=== PATIENT | female | born 1945 | race Caucasian/White ===

== ENCOUNTER 2019-05-22 08:15 | Outpatient (CLI) | payer MEDICARE, OTHER, SELFPAY ==
--- NOTE | 2019-05-22 08:15 | XR_ITS ---
WS: [id number] KUB, 05/22/2019 Clinical Data: Follow-up renal calculi. Comparison: KUB, 05/21/2017. Findings: No abnormal intraabdominal masses or calcifications are seen. There is no dilatated small bowel or ev idence of obstruction. No definite renal or ureteral calculi are seen. There is a large amount of fecal material throughout the colon. There is a levoscoliosis of the lower thoracic and upper lumbar spine. XR/XR KUB 22418 Impression: Negative KUB.
== END 2019-05-22 08:16 | disposition home or self-care (01) ==
PROVIDERS: Family Provider Family Medicine; PCP Nurse Practitioner; Visit Provider Urology
DX: N20.0 Calculus of kidney (principal)
CPT/HCPCS: 74018; 81001

== ENCOUNTER 2022-12-14 02:03 | Emergency (ER) | payer MEDICARE, OTHER, SELFPAY ==
[2022-12-14 02:05] VITALS: BP 191/80; PULSE 67; RESP 18; TEMP 36.6; O2SAT 98; BMI 23.0
--- NOTE | 2022-12-14 02:09 | CTR_ITS ---
PROCEDURE INFORMATION: Exam: CT Head Without Contrast Exam date and time: 12/14/2022 2:16 AM Age: 77 years old Clinical indication: Stroke-like symptoms; Speech disturbance; Additional info: Symptoms of acute stroke TECHNIQUE: Imaging protocol: Computed tomography of the head without contrast. Radiation optimization: All CT scans at this facility use at least one of these dose optimization techniques: automated exposure control; mA and/or kV adjustment per patient size (includes targeted exams where dose is matched to clinical indication); or iterative reconstruction. Other technique: STROKE PROTOCOL was implemented. REPORTING DATA: Count of CT and Cardiac NM exams in prior 12 months: This patient has received 0 known CTs and 0 known cardiac nuclear medicine studies in the 12 months prior to the current study. COMPARISON: CT head wo con* [id number] 12/31/2017 2:55 PM RADIATION DOSE METRICS: Total DLP (mGy-cm): 1103.98 FINDINGS: Brain: Normal. No hemorrhage. Unremarkable white matter. No mass effect. There are age-related microvascular ischemic changes in bilateral periventricular white matter. Cerebral ventricles: No ventriculomegaly. Paranasal sinuses: Visualized sinuses are unremarkable. No fluid levels. Mastoid air cells: Visualized mastoid air cells are well aerated. Bones/joints: Unremarkable. No acute fracture. Soft tissues: Unremarkable. CT/CT head thrombolytic 40712 IMPRESSION: 1. No acute intracranial abnormality. 2. Age-related microvascular ischemic changes in bilateral periventricular white matter. ASSESSMENT: ASPECTS (Man Stroke Program Early CT Score) is 10.
--- NOTE | 2022-12-14 02:10 | ED_ITS ---
HPI - General Adult General: Chief complaint: Neuro Symptoms/Deficit Stated complaint: possible stroke Time Seen by Provider: 12/14/22 02:09 Source: patient and EMS Mode of arrival: EMS Limitations: no limitations History of Present Illness: Patient is a 77-year-old female who presents to the emergency room via EMS from home for altered mental status. Patient's found patient lying on the couch sleeping and woke her up where he stated that she was more confused than normal; states last known well was at 2130. EMS stated that prior to arrival patient was slurred speech with severe weakness. On arrival, EMS states patient's symptoms subsided and was only unable to state current year as this is her baseline due to past medical history of dementia. Patient denies any dizziness or confusion. No other complaints at this time Associated symptoms: Deny chest pain, dyspnea, headache(s), nausea, rash, palpitations or vomiting Review of Systems Const: Denies: fever(s) or chills Eyes: Denies: change in vision ENMT: Denies: throat pain or mouth pain Card: Denies: chest pain or palpitations Resp: Denies: dyspnea or productive cough GI: Denies: abdominal pain, nausea or vomiting : Denies: flank pain or difficulty voiding Musc: Denies: neck pain or back pain Skin/Breast: Denies: rash Neuro: Denies: headache(s) [facility] ED PFSH: Medical History (Updated 12/14/22 @ 03:33 by Kesha Alvarado MD) 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 Urolithiasis Surgical History H/O breast biopsy H/O: hysterectomy Family History Mother Dementia Social History Smoking and tobacco status: never smoked Alcohol intake: never Substance/Drug Use: never Marital status: Current occupational status: retired Physical Exam Const: COMMON NORMALS: no acute distress and alert EXAM LIMITATIONS: altered mental status ORIENTATION/CONSCIOUSNESS: Yes awake, Yes oriented to person and Yes oriented to place; not oriented to time HENMT: COMMON NORMALS: normocephalic HEAD & SCALP: normocephalic FACE & SINUS: normal facial exam Eye: COMMON NORMALS: Equal, round and reactive pupils present and EOMs intact bilaterally GENERAL EYE: appearance normal, both eyes and all related stru ctures PUPIL: Yes Equal, round and reactive pupils present Neck/C-Spine: COMMON NORMALS: full ROM, no lymphadenopathy and no JVD Lymph: LYMPHATIC: no lymphadenopathy noted Chest: CHEST: Yes Symmetrical chest wall rise Resp: COMMON NORMALS: normal respiratory effort and clear to auscultation bilaterally EFFORT & INSPECTION: Yes symmetric chest movement AUSCULTATION: clear to auscultation bilaterally Cardio: COMMON NORMALS: no JVD and S1 normal heart sound present HEART SOUNDS: S1 normal heart sound present GI: COMMON NORMALS: Normal to inspection, nondistended, normoactive bowel sounds present : COMMON NORMALS: Yes no CVA tenderness BLADDER/KIDNEY EXAM: Yes no CVA tenderness Back/Pelvis: COMMON NORMALS: no CVA tenderness Extremity: COMMON NORMALS: normal to inspection Neuro: COMMON NORMALS: CN's II-XII intact bilaterally SENSORIUM/ORIENTATION: Yes alert, Yes oriented to person, Yes oriented to place and No oriented to time SPEECH: speech normal GAIT: Yes Unable to assess gait MOTOR EXAM: 5/5 motor strength present throughout Skin: COMMON NORMALS: no rashes or lesions noted GENERAL SKIN EXAM: no rashes or lesions noted Course Vital Signs: Vital signs: Vital Signs Temperature 97.9 F 12/14/22 02:05 Pulse Rate 66 12/14/22 03:00 Respiratory Rate 19 H 12/14/22 03:00 Blood Pressure 167/91 12/14/22 03:00 Pulse Oximetry 96 12/14/22 03:00 Oxygen Delivery Me thod Room Air 12/14/22 03:00 [facility] - General Adult Medical Decision Making Patient presents here with possible TIA versus her dementia head CT here is normal she is at her baseline currently she is able walk she has no signs of a stroke here NIH is 0 she does have a UTI we will place her on Keflex she is stable for discharge she is to follow-up with PCP and return if worsening Lab Data 12/14/22 02:15 12/14/22 02:[address] 12/14/22 02:09 IMPRESSION: 1. No acute intracranial abnormality. 2. Age-related microvascular ischemic changes in bilateral periventricular white matter. ASSESSMENT: ASPECTS (Ana Stroke Program Early CT Score) is 10. Laboratory Results WBC 8.29 10^3/uL (3.29-11.43) 12/14/22 02:15 RBC 4.63 10^6/uL (3.85-5.65) 12/14/22 02:15 Hgb 14.30 g/dL (11.27-16.99) 12/14/22 02:15 Hct 43.8 % (36-47) 12/14/22 02:15 MCV 94.6 fl (85-98) 12/14/22 02:15 MCH 30.9 pg (27-33) 12/14/22 02:15 MCHC 32.6 g/dL (30-55) 12/14/22 02:15 RDW 12.3 % (12.1-15.1) 12/14/22 02:15 Plt Count 266 10^3/cmm (157-399) 12/14/22 02:15 MPV 10.8 fL (7.4-10.4) H 12/14/22 02:15 Neut % (Auto) 52.3 % 12/14/22 02:15 Lymph % (Auto) 39.2 % 12/14/22 02:15 [place] % (Auto) 6.6 % 12/14/22 02:15 Eos % (Auto) 1.1 % 12/14/22 02:15 Baso % (Auto) 0.6 % 12/14/22 02:15 Neut # (Auto) 4.33 10^3/uL (1.8-7.7) 12/14/22 02:15 Lymph # (Auto) 3.3 10^3/uL (0.8-4.8) 12/14/22 02:15 [place] # (Auto) 0.6 10^3/uL (0.2-0.9) 12/14/22 02:15 Eos # (Auto) 0.1 10^3/uL (0.0-0.8) 12/14/22 02:15 Baso # (Auto) 0.1 10^3/uL (0.0-0.1) 12/14/22 02:15 Nucleated RBC % (auto) 0 % 12/14/22 02:15 Nucleated RBCs # 0.0 /100WBC 12/14/22 02:15 PT 12.30 SECONDS (12.1-14.9) 12/14/22 02:15 INR 0.89 (0.8-1.2) 12/14/22 02:15 APTT 32.6 SECONDS (23.9-36.7) 12/14/22 02:15 Sodium 141 mmol/L (136-145) 12/14/22 02:15 Potassium 4.1 mmol/L (3.5-5.1) 12/14/22 02:15 Chloride 105 mmol/L (98-107) 12/14/22 02:15 Carbon Dioxide 27 mmol/L (22-29) 12/14/22 02:15 Anion Gap 13.1 (5-19) 12/14/22 02:15 BUN 9 mg/dL (8-23) 12/14/22 02:15 Creatinine 0.6 mg/dL (0.5-0.9) 12/14/22 02:15 GFR Calculation Not Reportable 12/14/22 02:15 Glucose 95 mg/dL (65-115) 12/14/22 02:15 POC Glucose 96 mg/dL (70-110) 12/14/22 02:33 Calculated Osmolality 290 mOsm/kg (285-295) 12/14/22 02:15 Calcium 10.5 mg/dL (8.5-10.5) 12/14/22 02:15 Total Bilirubin 0.5 mg/dL (0.15-1.2) 12/14/22 02:15 AST 13 U/L (0-32) 12/14/22 02:15 ALT 14 U/L (0-33) 12/14/22 02:15 Alkaline Phosphatase 115 U/L (35-105) H 12/14/22 02:15 Total Protein 7.0 g/dL (6.6-8.7) 12/14/22 02:15 Albumin 4.7 g/dL (3.5-5.2) 12/14/22 02:15 Globulin 2.3 g/dL (1.3-4.6) 12/14/22 02:15 Urine Color Yellow (Yellow) 12/14/22 03:14 Urine Appearance Clear (CLEAR) 12/14/22 03:14 Urine pH 6.5 (5-7) 12/14/22 03:14 Ur Specific [place] 1.010 (1.005-1.030) 12/14/22 03:14 Urine Protein Neg (Negative) 12/14/22 03:14 Urine Glucose (UA) Norm (Normal) 12/14/22 03:14 Urine Ketones Negative (Negative) 12/14/22 03:14 Urine Blood Neg (Negative) 12/14/22 03:14 Urine Nitrate Positive (Negative) H 12/14/22 03:14 Urine Bilirubin Neg (Negative) 12/14/22 03:14 Urine Urobilinogen Neg mg/dL (Negative) 12/14/22 03:14 Ur Leukocyte Esterase Trace (Negative) H 12/14/22 03:14 Urine RBC None /hpf (0-2) 12/14/22 03:14 Urine WBC 10-15 /hpf (0-5) H 12/14/22 03:14 Ur Squamous Epith Cells 0-4 /hpf (0-5) H 12/14/22 03:14 Amorphous Sediment Not Reportable 12/14/22 03:14 Urine Bacteria 4+ /hpf (NONE) H 12/14/22 03:14 Urine Opiates Screen Negative ng/mL (Negative) 12/14/22 03:14 Ur Barbiturates Screen Negative ng/mL (Negative) 12/14/22 03:14 Ur Phencyclidine Scrn Negative ng/mL (Negative) 12/14/22 03:14 Ur Amphetamines Screen Negative ng/mL (Negative) 12/14/22 03:14 U Benzodiazepines Scrn Negative ng/mL (Negative) 12/14/22 03:14 Urine Cocaine Screen Negative ng/mL (Negative) 12/14/22 03:14 U Marijuana (THC) Screen Negative ng/mL (Negative) 12/14/22 03:14 Ethyl Alcohol < 10 mg/dL (0-10) 12/14/22 02:15 All radiology interpretation(s) finalized by discharge Discharge Plan Discharge Patient Disposition: Home Clinical Impression: Acute UTI, Brain TIA Condition: Stable Prescriptions: New cephalexin 500 mg capsule 500 mg PO TID 7 Days Qty: 21 0RF No Action lisinopril 10 mg tablet 10 mg PO DAILY omeprazole 20 mg capsule,delayed release(DR/EC) 20 mg PO DAILY levothyroxine 25 mcg capsule 25 mcg PO DAILY fluoxetine 20 mg capsule 20 mg PO DAILY meloxicam 15 mg tablet 15 mg PO DAILY cephalexin 500 mg capsule 500 mg PO BID Qty: 60 1RF Discharge Orders: Discharge ED (Routine); Ordered 12/14/22 Ordered By: Kesha Alvarado Referrals: Rosana Barriga NP [Primary Care Provider] - 1-3 days Discharge Diet: Advance as tolerated Discharge Activity: Resume usual activity Patient Instructions: Transient Ischemic Attack (ED), Urinary Tract Infection i n Women (ED) Coding Level of Care Code ED Loan Consultant for Clarisse Gonzales NIH stroke score NIHSS Level Of Consciousness - 1a: 0 Level Of Consciousness Questions - 1b: Both Correct Level Of Consciousness Commands - 1c: Both Correct Best Gaze - 2: Normal Visual [place] - 3: No Visual Loss Facial Palsy - 4: Normal Motor Arm Right - 5: No Drift Motor Arm Left - 5: No Drift Motor Leg Right - 6: No Drift Motor Leg Left - 6: No Drift Limb Ataxia - 7: Absent Sensory - 8: Normal Best Language - 9: No Aphasia Dysarthia - 10: Normal Extinction And Inattention - 11: 0 Score Total Score: 0
[2022-12-14 02:19] LABS: Basophils # 0.1 10^3/uL (0.0-0.1); Basophils % 0.6 %; Eosinophils # 0.1 10^3/uL (0.0-0.8); Eosinophils % 1.1 %; Hematocrit 43.8 % (36-47); Lymphocytes # 3.3 10^3/uL (0.8-4.8); Lymphocytes % 39.2 %; Mean Corpuscular HGB Conc 32.6 g/dL (30-55); Mean Corpuscular Hemoglobin 30.9 pg (27-33); Mean Corpuscular Volume 94.6 fl (85-98); Mean Platelet Volume 10.8 fL (7.4-10.4); Monocytes # 0.6 10^3/uL (0.2-0.9); Monocytes % 6.6 %; Neutrophils # 4.33 10^3/uL (1.8-7.7); Neutrophils % 52.3 %; Nucleated Red Blood Cells % 0 %; Platelet Count 266 10^3/cmm (157-399); Red Blood Count 4.63 10^6/uL (3.85-5.65); Red Cell Distribution Width 12.3 % (12.1-15.1); White Blood Count 8.29 10^3/uL (3.29-11.43)
[2022-12-14 02:30] VITALS: BP 163/87; PULSE 64; RESP 15; O2SAT 98
[2022-12-14 02:30] LABS: INR 0.89 (0.8-1.2)
[2022-12-14 02:31] LABS: Partial Thromboplastin Time 32.6 SECONDS (23.9-36.7)
--- NOTE | 2022-12-14 02:31 | ECG_ITS ---
[facility] Test Date: 2022-12-14 Pat Name: Ana Arana Department: Room: Gender: Female Lighting Specialist: : 1945 Requested By: Kesha Alvarado Order Number: [id number] Pierre MD: Addison Fraire M.D. Measurements Intervals [place] Rate: 62 P: 38 AK: 174 QRS: 5 QRSD: 80 T: 23 QT: 372 QTc: 380 Interpretive Statements SINUS RHYTHM MINIMAL VOLTAGE CRITERIA FOR LVH, CONSIDER NORMAL VARIANT [MEETS CRITERIA IN ONE OF: R(aVL), S(V1), R(V5), R(V5/V6)+S(V1)] Compared to ECG 01/17/2015 19:16:39 ST (T wave) deviation no longer present Electronically Signed On 12-14-2022 15:55:13 CDT by Addison Fraire M.D. [id number]
[2022-12-14 02:38] LABS: Glucose Point of Care 96 mg/dL (70-110)
[2022-12-14 02:51] LABS: Alanine Aminotransferase 14 U/L (0-33); Albumin Level 4.7 g/dL (3.5-5.2); Alkaline Phosphatase 115 U/L (35-105); Anion Gap 13.1 (5-19); Aspartate Amino Transferase 13 U/L (0-32); Blood Urea Nitrogen 9 mg/dL (8-23); Calcium 10.5 mg/dL (8.5-10.5); Carbon Dioxide 27 mmol/L (22-29); Chloride 105 mmol/L (98-107); Creatinine Clr Calc Pharmacy 49.5337; Globulin 2.3 g/dL (1.3-4.6); Glucose 95 mg/dL (65-115); Osmolality Calculated 290 mOsm/kg (285-295); Potassium 4.1 mmol/L (3.5-5.1); Sodium 141 mmol/L (136-145); Total Bilirubin 0.5 mg/dL (0.15-1.2)
[2022-12-14 02:57] LABS: Alcohol Level < 10 mg/dL (0-10)
[2022-12-14 03:00] VITALS: BP 167/91; PULSE 66; RESP 19; O2SAT 96
[2022-12-14 03:26] LABS: Add Urine Microscopic? YES; Bilirubin Urine Neg (Negative); Blood Urine Neg (Negative); Glucose Urine UA Norm (Normal); Ketones Urine Negative (Negative); Leukocyte Esterase Urine Trace (Negative); Nitrate Urine Positive (Negative); Protein Urine Neg (Negative); Urine Appearance Clear (CLEAR); Urine Color Yellow (Yellow); Urobilinogen Urine Neg (Negative); pH Urine 6.5 (5-7)
[2022-12-14 03:27] LABS: Add Urine Culture? Yes; Amphetamines Screen Urine Negative (Negative); Bacteria Urine 4+ /hpf; Barbiturates Screen Urine Negative (Negative); Benzodiazepines Screen Urine Negative (Negative); Cocaine Screen Urine Negative (Negative); Opiate Screen Urine Negative (Negative); PCP Screen Urine Negative (Negative); Squamous Epithelial Cell Urine 0-4 /hpf (0-5); THC Screen Urine Negative (Negative)
[2022-12-14 03:30] VITALS: BP 175/94; PULSE 62; RESP 17; O2SAT 98
[2022-12-14 04:00] VITALS: BP 182/87; PULSE 65; RESP 15; O2SAT 96
[2022-12-14] MEDS: cephALEXin 500 mg Capsule PO (04:01)
[2022-12-14 04:13] VITALS: BP 182/87; PULSE 65; RESP 15; O2SAT 96
== END 2022-12-14 04:15 | disposition home or self-care (01) ==
PROVIDERS: Emergency Provider Emergency Medicine; PCP Nurse Practitioner Family
DX: G45.9 Transient cerebral ischemic attack, unspecified (principal); N39.0 Urinary tract infection, site not specified; Z87.440 Personal history of urinary (tract) infections
CPT/HCPCS: 36416; 70450; 80053; 80306; 80307; 81001; 82962; 85025; 85610; 85730; 87077; 87086; 87186; 93005; 99285

== ENCOUNTER 2023-01-15 13:45 | Outpatient (CLI) | payer MEDICARE, OTHER, SELFPAY ==
[2023-01-15 14:21] LABS: Add Urine Microscopic? NO; Charge for UA Resulting for Rev
[2023-01-15 14:42] LABS: Bilirubin Urine Neg (Negative); Blood Urine Neg (Negative); Glucose Urine UA Norm (Normal); Ketones Urine Negative (Negative); Leukocyte Esterase Urine Negative (Negative); Nitrate Urine Negative (Negative); Protein Urine Neg (Negative); Urine Appearance Clear (CLEAR); Urine Color Yellow (Yellow); Urobilinogen Urine Norm (Negative); pH Urine 7 (5-7)
== END 2023-01-15 13:46 | disposition home or self-care (01) ==
LOC: LAB 13:51
PROVIDERS: PCP Nurse Practitioner Family; Visit Provider Nurse Practitioner Family
DX: R41.82 Altered mental status, unspecified (principal)
CPT/HCPCS: 81003

== ENCOUNTER 2024-05-16 14:56 | Emergency (ER) | payer MEDICARE, OTHER, SELFPAY ==
[2024-05-16 15:00] VITALS: BP 131/82; PULSE 81; RESP 17; TEMP 36.4; O2SAT 100
--- NOTE | 2024-05-16 15:41 | W.ED.AMS ---
HPI - Altered Mental Status General: Chief Complaint: Altered Mental Status Stated Complaint: possible UTI - change in mental status Time Seen by Provider: 05/16/24 15:30 History of Present Illness: 79-year-old female presents to the emergency room with increasing confusion. Patient lives at home has some cognitive deficits she has had increasing aggravation deficits from walking around they frequently had exacerbations of her behavior related to bladder infections. She has had kidney stones in the past have not noticed a fever no vomiting or diarrhea the daughter did mention she had a facial droop when they first woke up but here when I first examined her she has no focal neurologic deficits at all. She is awake alert answers questions although she has a difficult time with specific questions and tries to answers and generality. Related Data Home Medications ?Medication ?Instructions ?Recorded ?Confirmed lisinopril 10 mg tablet 10 mg PO DAILY 05/22/19 05/16/24 omeprazole 20 mg capsule,delayed 20 mg PO DAILY 05/22/19 05/16/24 release diphenhydramine 25 1 tab PO Q6H PRN Sleep 05/16/24 05/16/24 mg-acetaminophen 500 mg tablet (Tylenol PM Extra Strength) hydroxyzine HCl 25 mg tablet 25 mg PO TID 05/16/24 05/16/24 ibuprofen 200 mg tablet (Advil) 400 mg PO Q6H PRN Pain 05/16/24 05/16/24 quetiapine 100 mg tablet See Rx Instructions .Route .COMPLEX 05/16/24 05/16/24 simvastatin 80 mg tablet 80 mg PO QPM 05/16/24 05/16/24 Allergies Allergy/AdvReac Type Severity Reaction Status Date / Time No Known Allergies Allergy Verified 12/14/22 02:13 Review of Systems General: Reports: Other (Family assists with review of systems) Card: Denies: chest pain Resp: Denies: dyspnea GI: Reports: abdominal pain : Reports: flank pain (Left); Denies: dysuria, urinary frequency or urinary urgency [facility] ED PFSH: Medical History (Updated 05/16/24 @ 17:12 by Jass Leonard DO) Urolithiasis S/P extracorporeal shock wave therapy Cystitis cystica Surgical History H/O: hysterectomy H/O breast biopsy Family History Mother Dementia Social History Smoking and tobacco/nicotine status: never used tobacco/nicotine Alcohol intake: never Substance/Drug Use: never Marital status: Current occupational status: retired Physical Exam Const: GENERAL APPEARANCE: cooperative ORIENTATION/CONSCIOUSNESS: Yes awake HENMT: COMMON NORMALS: normocephalic, atraumatic and hearing grossly normal bilaterally HEAD & SCALP: normocephalic and atraumatic Resp: COMMON NORMALS: normal respiratory effort, No retractions, No use of accessory muscles and clear to auscultation bilaterally AUSCULTATION: clear to auscultation bilaterally Cardio: COMMON NORMALS: regular rate, regular rhythm and No murmurs present (Cardio) RATE: regular rate RHYTHM: regular rhythm GI: COMMON NORMALS: Soft to palpation and No hepatosplenomegaly present AUSCULTATION: Yes normoactive bowel sounds PALPATION: Yes Soft to palpation, No Tenderness to palpation present (GI), No Guarding due to palpation present (GI) and Yes No hepatosplenomegaly present Extremity: COMMON NORMALS: normal to inspection, capillary refill normal, no clubbing, cyanosis or edema, no calf tenderness and no pedal edema Skin: COMMON NORMALS: no rashes or lesions noted GENERAL SKIN EXAM: no rashes or lesions noted Course Vital Signs: Vital signs: Vital Signs Temperature 97.5 F L 05/16/24 15:00 Pulse Rate 81 05/16/24 15:00 Respiratory Rate 17 05/16/24 15:00 Blood Pressure 131/82 05/16/24 15:00 Pulse Oximetry 100 05/16/24 15:00 Oxygen Delivery Me thod Room Air 05/16/24 15:00 MDM - Altered Mental Status Medical Decision Making You are seen and seen in the emergency room for complaint of altered mental status family is reporting she is more confused. Labs UA unremarkable EKG unremarkable neuroexam normal no sign of lateralizing defects no sign of acute neurologic event. Reviewing her medication list she has hydroxyzine rather concerning dose of 25 3 times daily cautioned the family against this dose as it is likely to be extremely sedated of or possibly have a paradoxical reaction and be very agitating the patient additionally she has diphenhydramine and quetiapine on her list. Monitor closely with these medications follow-up with primary care doctor return if has further problems. Medical Records I reviewed the patient's medical records. Lab Data I reviewed the patient's lab results. 05/16/24 15:30 05/16/24 15:[address] 05/16/24 16:04 IMPRESSION: 1. No acute intracranial CT findings identified. 2. Ixsxxjlf-sv-neovjl atrophy/involutional changes of aging with components of chronic small-vessel disease. 3. 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 Laboratory Results WBC 5.27 10^3/uL (3.29-11.43) 05/16/24 15:30 RBC 4.13 10^6/uL (3.85-5.65) 05/16/24 15:30 Hgb 12.70 g/dL (11.27-16.99) 05/16/24 15:30 Hct 40.2 % (36-47) 05/16/24 15:30 MCV 97.3 fl (85-98) 05/16/24 15:30 MCH 30.8 pg (27-33) 05/16/24 15:30 MCHC 31.6 g/dL (30-55) 05/16/24 15:30 RDW 12.4 % (12.1-15.1) 05/16/24 15:30 Plt Count 236 10^3/cmm (157-399) 05/16/24 15:30 MPV 9.8 fL (7.4-10.4) 05/16/24 15:30 Neut % (Auto) 47.3 % 05/16/24 15:30 Lymph % (Auto) 44.2 % 05/16/24 15:30 [place] % (Auto) 6.6 % 05/16/24 15:30 Eos % (Auto) 1.1 % 05/16/24 15:30 Baso % (Auto) 0.6 % 05/16/24 15:30 Neut # (Auto) 2.49 10^3/uL (1.8-7.7) 05/16/24 15:30 Lymph # (Auto) 2.3 10^3/uL (0.8-4.8) 05/16/24 15:30 [place] # (Auto) 0.4 10^3/uL (0.2-0.9) 05/16/24 15:30 Eos # (Auto) 0.1 10^3/uL (0.0-0.8) 05/16/24 15:30 Baso # (Auto) 0.0 10^3/uL (0.0-0.1) 05/16/24 15:30 Nucleated RBC % (auto) 0 % 05/16/24 15:30 Nucleated RBCs # 0.0 /100WBC 05/16/24 15:30 Sodium 141 mmol/L (136-145) 05/16/24 15:30 Potassium 3.7 mmol/L (3.5-5.1) 05/16/24 15:30 Chloride 105 mmol/L (98-107) 05/16/24 15:30 Carbon Dioxide 28 mmol/L (22-29) 05/16/24 15:30 Anion Gap 11.7 (5-19) 05/16/24 15:30 BUN 8 mg/dL (8-23) 05/16/24 15:30 Creatinine 0.5 mg/dL (0.5-0.9) 05/16/24 15:30 GFR Calculation Not Reportable 05/16/24 15:30 Glucose 124 mg/dL (65-115) H 05/16/24 15:30 Calculated Osmolality 292 mOsm/kg (285-295) 05/16/24 15:30 Lactic Acid 1.5 mmol/L (0.5-2.2) 05/16/24 15:30 Calcium 9.6 mg/dL (8.5-10.5) 05/16/24 15:30 Total Bilirubin 0.3 mg/dL (0.15-1.2) 05/16/24 15:30 AST 12 U/L (0-32) 05/16/24 15:30 ALT 11 U/L (0-33) 05/16/24 15:30 Alkaline Phosphatase 95 U/L (35-105) 05/16/24 15:30 Total Protein 6.4 g/dL (6.6-8.7) L 05/16/24 15:30 Albumin 4.0 g/dL (3.5-5.2) 05/16/24 15:30 Globulin 2.4 g/dL (1.3-4.6) 05/16/24 15:30 Urine Color Yellow (Yellow) 05/16/24 15:30 Urine Appearance Clear (CLEAR) 05/16/24 15:30 Urine pH 7.0 (5-7) 05/16/24 15:30 Ur Specific [place] 1.006 (1.005-1.030) 05/16/24 15:30 Urine Protein Negative (Negative) 05/16/24 15:30 Urine Glucose (UA) Negative (Normal) 05/16/24 15:30 Urine Ketones Negative (Negative) 05/16/24 15:30 Urine Blood Negative (Negative) 05/16/24 15:30 Urine Nitrate Negative (Negative) 05/16/24 15:30 Urine Bilirubin Negative (Negative) 05/16/24 15:30 Urine Urobilinogen 0.2 mg/dL (Negative) 05/16/24 15:30 Ur Leukocyte Esterase Negative (Negative) 05/16/24 15:30 Urine RBC 0-2 /hpf (0-2) 05/16/24 15:30 Urine WBC 0-5 /hpf (0-5) 05/16/24 15:30 Ur Squamous Epith Cells 0-5 /hpf (0-5) 05/16/24 15:30 Amorphous Sediment Not Reportable 05/16/24 15:30 Urine Bacteria 1+ /hpf (NONE) H 05/16/24 15:30 Hyaline Casts 0-4 /lpf H 05/16/24 15:30 All radiology interpretation(s) finalized by discharge Discharge Plan Discharge Patient Disposition: Home Clinical Impression: Dementia Condition: Stable Prescriptions: No Action lisinopril 10 mg tablet 10 mg PO DAILY omeprazole 20 mg capsule,delayed release(DR/EC) 20 mg PO DAILY hydroxyzine HCl 25 mg tablet 25 mg PO TID simvastatin 80 mg tablet 80 mg PO QPM quetiapine 100 mg tablet See Rx Instructions .ROUTE .COMPLEX Rx Instructions: TAKE 1/2 (ONE-HALF) TABLET BY MOUTH IN THE MORNING AND 1 AT NIGHT ibuprofen [Advil] 200 mg Tablet 400 mg PO Q6H PRN (Reason: Pain) diphenhydramine-acetaminophen [Tylenol PM Extra Strength] 25-500 mg Tablet 1 tab PO Q6H PRN (Reason: Sleep) Discharge Orders: Discharge ED (Routine); Ordered 05/16/24 Ordered By: Jass Leonard Referrals: Rosana Barriga NP [Primary Care Provider] - Patient Instructions: Altered Mental Status (ED), Opioid Safety, Pain Management Activity Restrictions/Additional Instructions: [facility] It is very important that you follow up as instructed or that you return to the Emergency Department should you have concerns or if your condition changes or worsens in any way. You were seen in the emergency room with complaints of altered mental status. There is no sign of UTI your other labs are otherwise unremarkable CT of the head was negative. There is no sign of stroke. Recommend you follow-up with your primary care doctor. Print Language: Monegasque Coding Level of Care Code ED Mobility Architect for Clarisse Gonzales
[2024-05-16 15:42] LABS: Basophils % 0.6 %; Eosinophils # 0.1 10^3/uL (0.0-0.8); Eosinophils % 1.1 %; Hematocrit 40.2 % (36-47); Lymphocytes # 2.3 10^3/uL (0.8-4.8); Lymphocytes % 44.2 %; Mean Corpuscular HGB Conc 31.6 g/dL (30-55); Mean Corpuscular Hemoglobin 30.8 pg (27-33); Mean Corpuscular Volume 97.3 fl (85-98); Mean Platelet Volume 9.8 fL (7.4-10.4); Monocytes # 0.4 10^3/uL (0.2-0.9); Monocytes % 6.6 %; Neutrophils # 2.49 10^3/uL (1.8-7.7); Neutrophils % 47.3 %; Nucleated Red Blood Cells % 0 %; Platelet Count 236 10^3/cmm (157-399); Red Blood Count 4.13 10^6/uL (3.85-5.65); Red Cell Distribution Width 12.4 % (12.1-15.1); White Blood Count 5.27 10^3/uL (3.29-11.43)
[2024-05-16 15:54] LABS: Bilirubin Urine Negative (Negative); Blood Urine Negative (Negative); Glucose Urine UA Negative (Normal); Ketones Urine Negative (Negative); Leukocyte Esterase Urine Negative (Negative); Nitrate Urine Negative (Negative); Protein Urine Negative (Negative); Specific Gravity, Urine 1.006 (1.005-1.030); Urine Appearance Clear (CLEAR); Urine Color Yellow (Yellow); Urobilinogen Urine 0.2 mg/dL (Negative)
[2024-05-16 15:59] LABS: Add Urine Microscopic? YES; Bacteria Urine 1+ /hpf; Hyaline Casts Urine 0-4 /lpf; RBC Urine 0-2 /hpf (0-2); Squamous Epithelial Cell Urine 0-5 /hpf (0-5); WBC Urine 0-5 /hpf (0-5)
[2024-05-16 16:01] LABS: Alanine Aminotransferase 11 U/L (0-33); Alkaline Phosphatase 95 U/L (35-105); Anion Gap 11.7 (5-19); Aspartate Amino Transferase 12 U/L (0-32); Blood Urea Nitrogen 8 mg/dL (8-23); Calcium 9.6 mg/dL (8.5-10.5); Carbon Dioxide 28 mmol/L (22-29); Chloride 105 mmol/L (98-107); Globulin 2.4 g/dL (1.3-4.6); Glucose 124 mg/dL (65-115); Osmolality Calculated 292 mOsm/kg (285-295); Potassium 3.7 mmol/L (3.5-5.1); Sodium 141 mmol/L (136-145); Total Bilirubin 0.3 mg/dL (0.15-1.2); Total Protein 6.4 g/dL (6.6-8.7)
[2024-05-16 16:02] LABS: Lactic Sepsis W/Reflex 1.5 mmol/L (0.5-2.2)
--- NOTE | 2024-05-16 16:04 | CTR_ITS ---
PROCEDURE INFORMATION: Exam: CT Head Without Contrast Exam date and time: 05/16/2024 4:09 PM Age: 79 years old Clinical indication: Altered mental status/memory loss; Confusion or disorientation; HX of alzheimer's TECHNIQUE: Imaging protocol: Computed tomography of the head without contrast. Radiation optimization: All CT scans at this facility use at least one of these dose optimization techniques: automated exposure control; mA and/or kV adjustment per patient size (includes targeted exams where dose is matched to clinical indication); or iterative reconstruction. COMPARISON: CT head thrombolytic [id number] 12/14/2022 2:16 AM RADIATION DOSE METRICS: Total DLP (mGy-cm): 1019.08 FINDINGS: Brain: Parenchymal structures of the brain demonstrate moderately prominent patchy periventricular and deep white matter decreased density in both cerebral hemispheres. The midline is intact. Beam hardening artifact slightly obscures resolution through the posterior fossa structures. Bilateral basal ganglia calcifications are range of normal. No hemorrhage. Unremarkable white matter. No mass effect. Mild atherosclerotic changes are seen in the vertebral arteries of the level of the foramen magnum and do a trace degree in the supraclinoid ICA vessels. Cerebral ventricles: No ventriculomegaly. Paranasal sinuses: Visualized sinuses are unremarkable. No fluid levels. Mastoid air cells: Visualized mastoid air cells are well aerated. Orbital cavities: Bilateral exophthalmos appears to be present. This is mild in degree. Bones: Mild hyperostosis frontalis interna is noted and range of normal. No acute fracture. Soft tissues: Unremarkable. CT/CT head wo con* [id number] IMPRESSION: 1. No acute intracranial CT findings identified. 2. Prbiqbou-cq-zqbkfj atrophy/involutional changes of aging with components of chronic small-vessel disease. 3. 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
[2024-05-16 17:14] VITALS: BP 130/71; PULSE 77; O2SAT 100
[2024-05-16 17:15] LABS: Free T4 Free Thyroxine 1.24 ng/dL (0.82-1.77); Thyroid Stimulating Hormone 2.57 uIU/mL (0.27-4.20)
== END 2024-05-16 18:06 | disposition home or self-care (01) ==
PROVIDERS: Emergency Provider Family Medicine; PCP Nurse Practitioner Family
DX: F03.90 Unspecified dementia, unspecified severity, without behavioral disturbance, psychotic disturbance, mood disturbance, and anxiety (principal)
CPT/HCPCS: 70450; 80053; 81001; 83605; 84439; 84443; 85025; 99284